=== PATIENT | female | born 1980 | race Hispanic/Latino ===

== ENCOUNTER 2017-09-24 19:44 | Inpatient (IN) | payer MEDICAID ==
[~2017-09-24] VITALS: Ht 160 cm; Wt 141.1 kg
[~2017-09-24 19:44] MED LIST: ALBUHFA IH; FERR-52 PO; IBUP-2070 PO; INSU500V SQ; NPH,100V SQ; PREN1TAB80 PO; [UNRECOGNIZED DRUG - CODE] PO
[2017-09-24 20:38] VITALS: BP 120/66
[2017-09-24] MEDS ORDERED: INSULIN HUMULIN R 100 UNIT/ML 3ML SQ SCH ×2 (21:30→22:00)
[2017-09-24] MEDS ORDERED: INSULIN NPH 100 UNIT/ML 3ML SQ SCH ×3 (21:30→22:00)
[2017-09-24 21:59] LABS: HEMATOCRIT 30.8 % (36-48); MEAN CORPUSCULAR HEMOGLOBIN 21.1 pg (27.0-33.0); MEAN CORPUSCULAR HGB CONC 30.9 g/dL (32.0-36.0); MEAN CORPUSCULAR VOLUME 68.4 fL (79-99); NUCLEATED RED BLOOD CELLS 0.1 % (0.0-0.19); PLATELET COUNT (AUTO) 414 K/uL (130-400); RED BLOOD CELL COUNT(AUTO) 4.51 MIL/uL (4.00-5.50); RED CELL DISTRIBUTION WIDTH 18.6 % (11.0-15.5); WHITE BLOOD COUNT (AUTO) 7.9 K/uL (4.8-10.8)
[2017-09-24 22:10] LABS: HEMOGLOBIN A1C 9.2 % (4.0-6.0)
[2017-09-24 23:47] VITALS: BP 97/56
[2017-09-25 04:57] VITALS: BP 124/71
[2017-09-25] MEDS: INSULIN HUMULIN R 100 UNIT/ML 3ML SQ SCH (07:45)
[2017-09-25] MEDS: INSULIN NPH 100 UNIT/ML 3ML SQ SCH ×4 (07:46→21:18)
[2017-09-25 08:00] VITALS: BP 119/68
[2017-09-25] MEDS ORDERED: INSULIN NPH 100 UNIT/ML 3ML SQ SCH ×3 (09:00→21:40)
[2017-09-25 11:21] VITALS: BP 95/53
[2017-09-25 15:40] VITALS: BP 108/72
[2017-09-25] MEDS ORDERED: INSULIN HUMULIN R 100 UNIT/ML 3ML SQ SCH (17:00)
[2017-09-25 20:26] VITALS: BP 100/60
[2017-09-26 00:58] VITALS: BP 105/59
[2017-09-26 04:38] VITALS: BP 104/63
[2017-09-26] MEDS: INSULIN HUMULIN R 100 UNIT/ML 3ML SQ SCH (07:22)
[2017-09-26] MEDS: INSULIN NPH 100 UNIT/ML 3ML SQ SCH (07:23)
[2017-09-26 07:31] VITALS: BP 118/68
[2017-09-26 11:41] VITALS: BP 109/62
[2017-09-26 15:32] VITALS: BP 108/57
[2017-09-26] MEDS ORDERED: INSULIN NPH 100 UNIT/ML 3ML SQ SCH ×4 (17:00→17:38)
[2017-09-26] MEDS ORDERED: INSULIN HUMULIN R 100 UNIT/ML 3ML SQ SCH ×3 (17:00→17:36)
[2017-09-26 20:29] VITALS: BP 96/53
[2017-09-27 00:23] VITALS: BP 102/59
[2017-09-27 04:17] VITALS: BP 107/63
[2017-09-27 07:25] VITALS: BP 108/71
[2017-09-27] MEDS ORDERED: INSULIN HUMULIN R 100 UNIT/ML 3ML SQ SCH ×2 (07:30→17:00)
[2017-09-27] MEDS ORDERED: INSULIN NPH 100 UNIT/ML 3ML SQ SCH ×3 (07:30→17:00)
[2017-09-27] MEDS ORDERED: INSULIN NPH 100 UNIT/ML 3ML SQ ONE (07:59)
[2017-09-27] MEDS ORDERED: INSULIN HUMULIN R 100 UNIT/ML 3ML ONE (07:59)
[2017-09-27 11:35] VITALS: BP 112/60
[2017-09-28] MEDS ORDERED: INSULIN HUMULIN R 100 UNIT/ML 3ML SQ SCH (07:30)
[2017-09-28] MEDS ORDERED: INSULIN NPH 100 UNIT/ML 3ML SQ SCH (07:30)
== END 2017-09-27 13:35 | disposition home or self-care (01) | DRG 566 ==
LOC: WSH 19:44 → OBSVTOIN 19:44
PROVIDERS: ADMIT Obstetrics & Gynecology; ATTEND Obstetrics & Gynecology
DX: O24.410 Gestational diabetes mellitus in pregnancy, diet controlled (principal); Z3A.08 8 weeks gestation of pregnancy
CPT/HCPCS: 36415; 82948; 83036; 85027; J1815

== ENCOUNTER 2018-01-02 11:44 | Inpatient (IN) | payer MEDICAID ==
[~2018-01-02] VITALS: Ht 165.1 cm; Wt 143.3 kg
[2018-01-02 17:32] LABS: MEAN CORPUSCULAR HEMOGLOBIN 25.3 pg (27.0-33.0); MEAN CORPUSCULAR HGB CONC 31.5 g/dL (32.0-36.0); MEAN CORPUSCULAR VOLUME 80.3 fL (79-99); PLATELET COUNT (AUTO) 303 K/uL (130-400); RED BLOOD CELL COUNT(AUTO) 4.49 MIL/uL (4.00-5.50); RED CELL DISTRIBUTION WIDTH 18.7 % (11.0-15.5)
[2018-01-02] MEDS ORDERED: INSULIN HUMULIN R 100 UNIT/ML 3ML SQ SCH (18:00)
[2018-01-02] MEDS: AMPICILLIN 2GM+NS 100ML 100 ML IV SCH (23:57)
[2018-01-02] MEDS: LACTATED RINGERS 1000ML 1,000 ML IV PRN (23:57)
[2018-01-03] MEDS: AMPICILLIN 2GM+NS 100ML 100 ML IV SCH ×4 (05:43→23:58)
[2018-01-03 05:53] LABS: BASOPHILS % (AUTO) 1.1 % (0.0-5.0); HEMATOCRIT 33.8 % (36-48); LYMPHOCYTES % (AUTO) 23.6 % (21.0-51.0); MEAN CORPUSCULAR HEMOGLOBIN 25.2 pg (27.0-33.0); MEAN CORPUSCULAR HGB CONC 31.2 g/dL (32.0-36.0); MEAN CORPUSCULAR VOLUME 80.7 fL (79-99); MONOCYTES % (AUTO) 5.2 % (3.0-13.0); NEUTROPHILS % (AUTO) 68.1 % (40.0-77.0); PLATELET COUNT (AUTO) 292 K/uL (130-400); RED BLOOD CELL COUNT(AUTO) 4.19 MIL/uL (4.00-5.50); RED CELL DISTRIBUTION WIDTH 18.7 % (11.0-15.5); WHITE BLOOD COUNT (AUTO) 7.8 K/uL (4.8-10.8)
[2018-01-03] MEDS ORDERED: LACTATED RINGERS 1000ML 1,000 ML IV PRN (10:24)
[2018-01-03] MEDS ORDERED: PROMETHAZINE HCL 25 MG/ML 1ML AMPULE IM PRN (10:30)
[2018-01-03] MEDS ORDERED: MISOPROSTOL 200 MCG TABLET VG SCH (10:30)
[2018-01-03] MEDS ORDERED: MEPERIDINE-PF 100 MG/ML SYG SIVP PRN (10:30)
[2018-01-03] MEDS ORDERED: MEPERIDINE-PF 50 MG/ML SYG SIVP PRN (10:30)
[2018-01-03] MEDS: LACTATED RINGERS 1000ML 1,000 ML IV PRN (13:30)
[2018-01-03] MEDS ORDERED: INSULIN NPH 100 UNIT/ML 3ML SQ SCH (17:00)
[2018-01-03] MEDS ORDERED: INSULIN HUMULIN R 100 UNIT/ML 3ML SQ SCH ×2 (17:00)
[2018-01-03] MEDS: INSULIN HUMULIN R 100 UNIT/ML 3ML SQ SCH (17:29)
[2018-01-03] MEDS: INSULIN NPH 100 UNIT/ML 3ML SQ SCH (17:30)
[2018-01-03 18:07] LABS: BASOPHILS % (AUTO) 0.3 % (0.0-5.0); HEMATOCRIT 32.5 % (36-48); LYMPHOCYTES % (AUTO) 21.6 % (21.0-51.0); MEAN CORPUSCULAR HEMOGLOBIN 25.6 pg (27.0-33.0); MONOCYTES % (AUTO) 4.5 % (3.0-13.0); NEUTROPHILS % (AUTO) 71.6 % (40.0-77.0); PLATELET COUNT (AUTO) 273 K/uL (130-400); RED BLOOD CELL COUNT(AUTO) 4.07 MIL/uL (4.00-5.50); RED CELL DISTRIBUTION WIDTH 18.5 % (11.0-15.5); WHITE BLOOD COUNT (AUTO) 7.8 K/uL (4.8-10.8)
[2018-01-04] MEDS: AMPICILLIN 2GM+NS 100ML 100 ML IV SCH ×4 (05:53→17:45)
[2018-01-04 06:14] LABS: BASOPHILS % (AUTO) 0.4 % (0.0-5.0); EOSINOPHILS % (AUTO) 2.8 % (0.0-8.0); HEMATOCRIT 32.4 % (36-48); LYMPHOCYTES % (AUTO) 18.9 % (21.0-51.0); MEAN CORPUSCULAR HEMOGLOBIN 26.3 pg (27.0-33.0); MEAN CORPUSCULAR HGB CONC 32.6 g/dL (32.0-36.0); MEAN CORPUSCULAR VOLUME 80.7 fL (79-99); NEUTROPHILS % (AUTO) 71.9 % (40.0-77.0); PLATELET COUNT (AUTO) 291 K/uL (130-400); RED BLOOD CELL COUNT(AUTO) 4.02 MIL/uL (4.00-5.50); RED CELL DISTRIBUTION WIDTH 18.2 % (11.0-15.5); WHITE BLOOD COUNT (AUTO) 7.1 K/uL (4.8-10.8)
[2018-01-04 07:21] LABS: HEPATITIS Bs ANTIGEN SCREEN P Negative (Negative)
[2018-01-04] MEDS: INSULIN HUMULIN R 100 UNIT/ML 3ML SQ SCH ×2 (07:38→12:03)
[2018-01-04] MEDS: INSULIN NPH 100 UNIT/ML 3ML SQ SCH (07:40)
[2018-01-04] MEDS ORDERED: INSULIN NPH 100 UNIT/ML 3ML SQ SCH (08:00)
[2018-01-04] MEDS: LACTATED RINGERS 1000ML 1,000 ML IV PRN ×2 (08:44→18:38)
[2018-01-04] MEDS ORDERED: INSULIN HUMULIN R 100 UNIT/ML 3ML SQ SCH (12:00)
[2018-01-04] MEDS ORDERED: INSULIN HUMULIN R 100 UNIT/ML 3ML SQ ONE (17:30)
[2018-01-04] MEDS ORDERED: INSULIN NPH 100 UNIT/ML 3ML SQ ONE (17:30)
[2018-01-04 18:13] LABS: BASOPHILS % (AUTO) 0.9 % (0.0-5.0); EOSINOPHILS % (AUTO) 3.1 % (0.0-8.0); HEMATOCRIT 31.6 % (36-48); LYMPHOCYTES % (AUTO) 21.9 % (21.0-51.0); MEAN CORPUSCULAR HEMOGLOBIN 26.3 pg (27.0-33.0); MEAN CORPUSCULAR HGB CONC 32.9 g/dL (32.0-36.0); MEAN CORPUSCULAR VOLUME 80.1 fL (79-99); MONOCYTES % (AUTO) 6.1 % (3.0-13.0); PLATELET COUNT (AUTO) 311 K/uL (130-400); RED BLOOD CELL COUNT(AUTO) 3.94 MIL/uL (4.00-5.50); RED CELL DISTRIBUTION WIDTH 18.2 % (11.0-15.5); WHITE BLOOD COUNT (AUTO) 7.2 K/uL (4.8-10.8)
[2018-01-05] MEDS: AMPICILLIN 2GM+NS 100ML 100 ML IV SCH ×6 (00:32→23:56)
[2018-01-05 06:26] LABS: BASOPHILS % (AUTO) 0.3 % (0.0-5.0); EOSINOPHILS % (AUTO) 3.6 % (0.0-8.0); HEMATOCRIT 32.2 % (36-48); LYMPHOCYTES % (AUTO) 22.9 % (21.0-51.0); MEAN CORPUSCULAR HEMOGLOBIN 25.4 pg (27.0-33.0); MEAN CORPUSCULAR HGB CONC 31.5 g/dL (32.0-36.0); MEAN CORPUSCULAR VOLUME 80.7 fL (79-99); MONOCYTES % (AUTO) 5.6 % (3.0-13.0); NEUTROPHILS % (AUTO) 67.6 % (40.0-77.0); PLATELET COUNT (AUTO) 268 K/uL (130-400); RED BLOOD CELL COUNT(AUTO) 3.99 MIL/uL (4.00-5.50); RED CELL DISTRIBUTION WIDTH 17.9 % (11.0-15.5); WHITE BLOOD COUNT (AUTO) 7.3 K/uL (4.8-10.8)
[2018-01-05] MEDS: LACTATED RINGERS 1000ML 1,000 ML IV PRN ×2 (07:22→15:16)
[2018-01-05] MEDS: INSULIN HUMULIN R 100 UNIT/ML 3ML SQ SCH ×3 (07:25→17:00)
[2018-01-05] MEDS: INSULIN NPH 100 UNIT/ML 3ML SQ SCH ×2 (07:26→17:02)
[2018-01-05 18:15] LABS: BASOPHILS % (AUTO) 0.6 % (0.0-5.0); EOSINOPHILS % (AUTO) 3.3 % (0.0-8.0); HEMATOCRIT 31.7 % (36-48); LYMPHOCYTES % (AUTO) 23.2 % (21.0-51.0); MEAN CORPUSCULAR HEMOGLOBIN 25.5 pg (27.0-33.0); MEAN CORPUSCULAR HGB CONC 31.8 g/dL (32.0-36.0); MEAN CORPUSCULAR VOLUME 80.4 fL (79-99); MONOCYTES % (AUTO) 4.8 % (3.0-13.0); NEUTROPHILS % (AUTO) 68.1 % (40.0-77.0); PLATELET COUNT (AUTO) 272 K/uL (130-400); RED BLOOD CELL COUNT(AUTO) 3.95 MIL/uL (4.00-5.50); RED CELL DISTRIBUTION WIDTH 17.8 % (11.0-15.5); WHITE BLOOD COUNT (AUTO) 7.1 K/uL (4.8-10.8)
[2018-01-06] MEDS: AMPICILLIN 2GM+NS 100ML 100 ML IV SCH (06:00)
[2018-01-06 06:30] LABS: BASOPHILS % (AUTO) 0.5 % (0.0-5.0); EOSINOPHILS % (AUTO) 3.3 % (0.0-8.0); HEMATOCRIT 32.3 % (36-48); MEAN CORPUSCULAR HEMOGLOBIN 26.3 pg (27.0-33.0); MEAN CORPUSCULAR HGB CONC 32.7 g/dL (32.0-36.0); MEAN CORPUSCULAR VOLUME 80.4 fL (79-99); MONOCYTES % (AUTO) 5.6 % (3.0-13.0); NEUTROPHILS % (AUTO) 67.6 % (40.0-77.0); PLATELET COUNT (AUTO) 301 K/uL (130-400); RED BLOOD CELL COUNT(AUTO) 4.02 MIL/uL (4.00-5.50); WHITE BLOOD COUNT (AUTO) 7.5 K/uL (4.8-10.8)
[2018-01-06] MEDS: INSULIN NPH 100 UNIT/ML 3ML SQ SCH (08:25)
[2018-01-06] MEDS: INSULIN HUMULIN R 100 UNIT/ML 3ML SQ SCH (08:25)
== END 2018-01-06 10:35 | disposition home or self-care (01) | DRG 566 ==
LOC: EDH 11:44 → LDH 11:45 → OBSVTOIN 11:45 → LDH 15:35
PROVIDERS: ADMIT Obstetrics & Gynecology; ATTEND Obstetrics & Gynecology
DX: O42.90 Premature rupture of membranes, unspecified as to length of time between rupture and onset of labor, unspecified weeks of gestation (principal); Z68.43 Body mass index [BMI] 50.0-59.9, adult; O24.912 Unspecified diabetes mellitus in pregnancy, second trimester; O26.892 Other specified pregnancy related conditions, second trimester; E66.01 Morbid (severe) obesity due to excess calories; O99.212 Obesity complicating pregnancy, second trimester; G47.30 Sleep apnea, unspecified; O99.012 Anemia complicating pregnancy, second trimester; Z3A.21 21 weeks gestation of pregnancy; Z79.4 Long term (current) use of insulin
CPT/HCPCS: 36415; 76805; 76815; 82947; 82948; 85025; 85027; 86592; 86850; 86900; 86901; 87340; 96360; 96361; J0290; J1815; J7120